=== PATIENT | male | born 1985 | race African-American/Black ===

== ENCOUNTER 2016-10-16 10:51 | Emergency (ER) | payer SELFPAY ==
[~2016-10-16] VITALS: Ht 185.4 cm; Wt 102.3 kg
[~2016-10-16 10:51] MED LIST: NORCO 325 MG-51 TAB PO; PREDNISONE20 MG PO
[2016-10-16 10:57] VITALS: BP 133/78
[2016-10-16 11:59] VITALS: PULSE 62; TEMP 98.5
== END 2016-10-16 12:00 | disposition home or self-care (01) ==
LOC: COL.ER 10:51
DX: M79.661 Pain in right lower leg (principal); F17.210 Nicotine dependence, cigarettes, uncomplicated

== ENCOUNTER 2016-10-22 21:42 | Emergency (ER) | payer SELFPAY ==
[~2016-10-22] VITALS: Ht 182.9 cm; Wt 104.5 kg
[2016-10-22 22:13] VITALS: BP 149/75; TEMP 98.2
[2016-10-22] MEDS ORDERED: NORCO 325 MG-51 TAB PO (23:32)
[2016-10-22] MEDS ORDERED: PEN-VEE K500 MG PO (23:32)
[2016-10-22 23:56] VITALS: PULSE 65
== END 2016-10-22 23:56 | disposition home or self-care (01) ==
LOC: COL.ER 21:42
DX: K08.89 Other specified disorders of teeth and supporting structures (principal)

== ENCOUNTER 2017-02-14 19:27 | Emergency (ER) | payer SELFPAY ==
[~2017-02-14] VITALS: Ht 182.9 cm; Wt 97.7 kg
[~2017-02-14 19:27] MED LIST changes: +PEN-VEE K500 MG PO
[2017-02-14 19:31] VITALS: TEMP 97.9
[2017-02-14] MEDS ORDERED: ROXICODONE 55 MG/TAB PO (21:19)
[2017-02-14 22:15] VITALS: BP 147/87; PULSE 66
[2017-02-14] MEDS ORDERED: CRUTCHES MC (22:17)
== END 2017-02-14 22:15 | disposition home or self-care (01) ==
LOC: COL.ER 19:27
DX: S82.301A Unspecified fracture of lower end of right tibia, initial encounter for closed fracture (principal); F17.210 Nicotine dependence, cigarettes, uncomplicated; W10.9XXA Fall (on) (from) unspecified stairs and steps, initial encounter; Y92.009 Unspecified place in unspecified non-institutional (private) residence as the place of occurrence of the external cause
CPT/HCPCS: J2270